=== PATIENT | female | born 1980 | race African-American/Black ===

== ENCOUNTER 2022-01-30 15:01 | Outpatient (CLI) | payer OTHER | END 2022-01-30 15:02 | disposition home or self-care (01) | LOC: CSHCT 15:01 | PROVIDERS: ATTEND Nurse Practitioner Family | DX: G43.109 Migraine with aura, not intractable, without status migrainosus (principal); R42 Dizziness and giddiness; I10 Essential (primary) hypertension; O87.4 Varicose veins of lower extremity in the puerperium; Z68.41 Body mass index [BMI] 40.0-44.9, adult | CPT/HCPCS: 70450 ==

== ENCOUNTER 2024-02-25 13:14 | Outpatient (CLI) | payer OTHER | END 2024-02-25 13:15 | disposition home or self-care (01) | LOC: CSHULT 13:14 | PROVIDERS: ATTEND Obstetrics & Gynecology | DX: E04.1 Nontoxic single thyroid nodule (principal) | CPT/HCPCS: 76536 ==